=== PATIENT | female | born 1990 | race African-American/Black ===

== ENCOUNTER 2017-12-16 04:40 | Emergency (ER) | payer MEDICAID ==
[~2017-12-16] VITALS: Ht 167.6 cm; Wt 97.7 kg
[~2017-12-16 04:40] MED LIST: ATIVAN 0.50.5 MG/TAB PO; DEPO-PROVER150 MG/M1 IM; DEPO-PROVER400 MG/ML IM; IBU600 MG PO; LASIX 20MG TABL20 MG PO; MACROBID 1100 MG/CAP PO; METRONIDAZOLE500 MG PO; NO HOME MEDICATIONS; NORCO 325 MG-51 TAB PO; PEPCID 20MG TAB20 MG PO; PERCOCET 325 MG1 TA2 PO; PHENERGAN 25 TA25 MG PO; PRENATAL PLUS1 TA2 PO; PYRIDIUM200 M1 PO; TYLENOL 325MG325 MG PO; ZITHROMAX 250M250 MG PO
[2017-12-16 04:46] VITALS: BP 131/89; TEMP 97
[2017-12-16 05:40] VITALS: PULSE 85
== END 2017-12-16 05:49 | disposition home or self-care (01) ==
LOC: COL.ER 04:40
DX: Z11.3 Encounter for screening for infections with a predominantly sexual mode of transmission (principal)
CPT/HCPCS: J0696

== ENCOUNTER 2018-01-03 13:00 | Emergency (ER) | payer OTHER ==
[~2018-01-03] VITALS: Ht 167.6 cm; Wt 78.2 kg
[2018-01-03 13:10] VITALS: BP 101/64; TEMP 98.2
[2018-01-03 14:06] LABS: BASO % 0.8 % (0.0-2.0); EOS # 0.1 (0.0-0.7); EOS % 1.9 % (0-4.0); GRAN % 37.6 % (42.2-75.2); HEMATOCRIT 37.2 % (37.0-47.0); LYMPH # 1.3 (1.2-3.4); LYMPH % 49.4 % (20.0-51.0); MEAN CELL VOLUME 94 fl (80.0-100.0); MEAN CORPUSCULAR HEMOGLOBIN 30 pg (27.0-31.0); MEAN CORPUSCULAR HGB CONC 32 g/dl (33.0-37.0); MEAN PLATELET VOLUME 10.7 fl (7.4-10.4); MONO # 0.3 (0.1-0.6); MONO % 9.9 % (1.7-9.3); PLATELET COUNT 211 K/mm3 (130-400); RED BLOOD COUNT 3.97 M/mm3 (4.10-5.30); REDCELL DISTRIBUTION WIDTH-CV 12.7 % (11.5-14.5)
[2018-01-03 14:12] LABS: HEMOGLOBIN 11.9 g/dl (12.5-16.0)
[2018-01-03 14:15] LABS: ALANINE AMINOTRANSFERASE 28 U/L (9-52); ALBUMIN 3.9 gm/dL (3.5-5.0); ALKALINE PHOSPHATASE 81 U/L (50-136); ANION GAP 10 mmol/L (7-16); AST,SGOT 19 U/L (15-37); BILIRUBIN,TOTAL 0.3 mg/dL (0.0-1.0); BLOOD UREA NITROGEN 10 mg/dL (7-17); CALCIUM 9.4 mg/dL (8.4-10.2); CARBON DIOXIDE 27 mmol/L (22-30); CHLORIDE 101 mmol/L (98-107); CREATININE, serum 0.79 mg/dL (0.52-1.25); GLUCOSE 93 mg/dL (74-106); LIPASE 60 U/L (23-300); SODIUM 138 mmol/L (137-145); TOTAL PROTEIN 7.8 gm/dL (6.4-8.2)
[2018-01-03 14:27] LABS: TROPONIN-I < 0.012 ng/mL (0.000-0.034)
[2018-01-03 15:05] VITALS: PULSE 62
== END 2018-01-03 15:08 | disposition home or self-care (01) ==
LOC: COL.ER 13:00
PROVIDERS: Physician Assistant
DX: R07.89 Other chest pain (principal); F17.210 Nicotine dependence, cigarettes, uncomplicated

== ENCOUNTER 2018-01-24 12:12 | Emergency (ER) | payer OTHER ==
[~2018-01-24] VITALS: Ht 152.4 cm; Wt 90.9 kg
[2018-01-24 12:14] VITALS: BP 104/64; TEMP 98.9
[2018-01-24 13:29] VITALS: PULSE 76
== END 2018-01-24 13:37 | disposition home or self-care (01) ==
LOC: COL.ER 12:12
DX: J02.0 Streptococcal pharyngitis (principal)
CPT/HCPCS: J0561

== ENCOUNTER 2018-04-10 23:17 | Emergency (ER) | payer SELFPAY ==
[~2018-04-10] VITALS: Ht 167.6 cm; Wt 86.8 kg
[2018-04-10 23:22] VITALS: BP 123/73; PULSE 87; TEMP 98.4
[2018-04-10] MEDS ORDERED: AMOXICILLIN 8751 TAB PO (23:58)
== END 2018-04-11 00:22 | disposition home or self-care (01) ==
LOC: COL.ER 23:17
DX: K08.89 Other specified disorders of teeth and supporting structures (principal)

== ENCOUNTER 2018-10-22 10:43 | Emergency (ER) | payer SELFPAY ==
[~2018-10-22] VITALS: Ht 167.6 cm; Wt 82.7 kg
[~2018-10-22 10:43] MED LIST changes: +AMOXICILLIN 8751 TAB PO
[2018-10-22 10:49] VITALS: BP 127/77; PULSE 76; TEMP 99.1
[2018-10-22] MEDS ORDERED: ALEVE 220MG220 MG PO (10:55)
[2018-10-22] MEDS ORDERED: AMOXICILLIN 50500 MG PO (11:13)
[2018-10-22] MEDS ORDERED: NORCO 325 MG-51 TAB PO (11:13)
== END 2018-10-22 11:38 | disposition home or self-care (01) ==
LOC: COL.ER 10:43
DX: K02.9 Dental caries, unspecified (principal)

== ENCOUNTER 2019-03-19 13:28 | Emergency (ER) | payer MEDICAID ==
[~2019-03-19] VITALS: Ht 167.6 cm; Wt 90.0 kg
[~2019-03-19 13:28] MED LIST changes: +ALEVE 220MG220 MG PO; +AMOXICILLIN 50500 MG PO
[2019-03-19 13:36] VITALS: TEMP 99.1
[2019-03-19 14:19] LABS: COLLECTION METHOD CLEAN CATCH
[2019-03-19 14:22] LABS: BASO % 0.7 % (0.0-2.0); EOS # 0.1 (0.0-0.7); EOS % 2.1 % (0-4.0); GRAN # 1.3 (1.4-6.5); HEMATOCRIT 37.7 % (37.0-47.0); HEMOGLOBIN 11.9 g/dl (12.5-16.0); LYMPH # 1.3 (1.2-3.4); LYMPH % 43.8 % (20.0-51.0); MEAN CELL VOLUME 93 fl (80.0-100.0); MEAN CORPUSCULAR HEMOGLOBIN 30 pg (27.0-31.0); MEAN CORPUSCULAR HGB CONC 32 g/dl (33.0-37.0); MEAN PLATELET VOLUME 10.8 fl (7.4-10.4); MONO # 0.3 (0.1-0.6); MONO % 9.4 % (1.7-9.3); PLATELET COUNT 216 K/mm3 (130-400); RED BLOOD COUNT 4.04 M/mm3 (4.10-5.30); REDCELL DISTRIBUTION WIDTH-CV 13.1 % (11.5-14.5)
[2019-03-19 14:26] LABS: MUCOUS Present /lpf; PH 5 (5-8); URINE APPEARANCE Hazy; URINE BACTERIA None Seen /hpf; URINE BILIRUBIN Negative (NEGATIVE); URINE BLOOD 1+ (NEGATIVE); URINE COLOR Yellow; URINE GLUCOSE Negative (NEGATIVE); URINE KETONE Negative (NEGATIVE); URINE LEUKOCYTE ESTERASE Negative (NEGATIVE); URINE NITRATE Negative (NEGATIVE); URINE PROTEIN(semi-quant) Negative (NEGATIVE); URINE UROBILINOGEN Negative (NEGATIVE)
[2019-03-19 14:36] LABS: ALANINE AMINOTRANSFERASE 13 U/L (9-52); ALBUMIN 4.1 gm/dL (3.5-5.0); ALKALINE PHOSPHATASE 74 U/L (50-136); ANION GAP 8 mmol/L (7-16); AST,SGOT 21 U/L (15-37); BILIRUBIN,TOTAL 0.4 mg/dL (0.0-1.0); BLOOD UREA NITROGEN 9 mg/dL (7-17); CALCIUM 9.2 mg/dL (8.4-10.2); CARBON DIOXIDE 27 mmol/L (22-30); CHLORIDE 105 mmol/L (98-107); CREATININE, serum 0.88 (0.52-1.25); GLUCOSE 103 mg/dL (74-106); LIPASE 61 U/L (23-300); POTASSIUM 4.5 mmol/L (3.4-5.0); SODIUM 140 mmol/L (137-145); TOTAL PROTEIN 8.1 gm/dL (6.4-8.2)
[2019-03-19 14:46] LABS: C-REACTIVE PROTEIN < 0.5 mg/dL (0.0-0.9)
[2019-03-19 17:13] VITALS: BP 104/68; PULSE 70
== END 2019-03-19 17:15 | disposition home or self-care (01) ==
LOC: COL.ER 13:28
PROVIDERS: Emergency Medicine
DX: D25.9 Leiomyoma of uterus, unspecified (principal)
CPT/HCPCS: J1170; J7030

== ENCOUNTER 2019-10-11 13:44 | Emergency (ER) | payer MEDICAID ==
[~2019-10-11] VITALS: Ht 167.6 cm; Wt 91.8 kg
[2019-10-11 13:59] VITALS: BP 102/61; TEMP 97.7
[2019-10-11 14:32] LABS: COLLECTION METHOD CLEAN CATCH
[2019-10-11 14:41] LABS: MUCOUS Present /lpf; PH 7 (5-8); SQUAMOUS EPITHELIAL 20-50 /hpf; URINE APPEARANCE Cloudy; URINE BACTERIA Rare /hpf; URINE BILIRUBIN Negative (NEGATIVE); URINE BLOOD Negative (NEGATIVE); URINE COLOR Yellow; URINE GLUCOSE Negative (NEGATIVE); URINE KETONE Negative (NEGATIVE); URINE LEUKOCYTE ESTERASE 1+ (NEGATIVE); URINE NITRATE Negative (NEGATIVE); URINE PROTEIN(semi-quant) Negative (NEGATIVE)
[2019-10-11 14:51] LABS: BASO % 0.3 % (0.0-2.0); EOS # 0.1 (0.0-0.7); EOS % 1.6 % (0-4.0); GRAN # 2.1 (1.4-6.5); GRAN % 56.3 % (42.2-75.2); LYMPH # 1.1 (1.2-3.4); LYMPH % 29.4 % (20.0-51.0); MEAN CELL VOLUME 95 fl (80.0-100.0); MEAN CORPUSCULAR HEMOGLOBIN 30 pg (27.0-31.0); MEAN CORPUSCULAR HGB CONC 32 g/dl (33.0-37.0); MEAN PLATELET VOLUME 10.7 fl (7.4-10.4); MONO # 0.4 (0.1-0.6); MONO % 12.1 % (1.7-9.3); PLATELET COUNT 196 K/mm3 (130-400); RED BLOOD COUNT 3.62 M/mm3 (4.10-5.30); REDCELL DISTRIBUTION WIDTH-CV 12.6 % (11.5-14.5)
[2019-10-11 14:53] LABS: HEMATOCRIT 34.2 % (37.0-47.0)
[2019-10-11 15:07] LABS: ALANINE AMINOTRANSFERASE 11 U/L (9-52); ALBUMIN 3.8 gm/dL (3.5-5.0); ALKALINE PHOSPHATASE 55 U/L (50-136); ANION GAP 6 mmol/L (7-16); AST,SGOT 15 U/L (15-37); BILIRUBIN,TOTAL < 0.1 mg/dL (0.0-1.0); BLOOD UREA NITROGEN 8 mg/dL (7-17); C-REACTIVE PROTEIN < 0.5 mg/dL (0.0-0.9); CALCIUM 9.1 mg/dL (8.4-10.2); CARBON DIOXIDE 26 mmol/L (22-30); CHLORIDE 106 mmol/L (98-107); CREATININE, serum 0.71 (0.52-1.25); GLUCOSE 92 mg/dL (74-106); POTASSIUM 4.3 mmol/L (3.4-5.0); SODIUM 137 mmol/L (137-145)
[2019-10-11 15:48] VITALS: PULSE 81
== END 2019-10-11 15:48 | disposition home or self-care (01) ==
LOC: COL.ER 13:44
PROVIDERS: Nurse Practitioner
DX: O99.350 Diseases of the nervous system complicating pregnancy, unspecified trimester (principal); R51 Headache; Z3A.00 Weeks of gestation of pregnancy not specified

== ENCOUNTER 2020-03-02 11:21 | Emergency (ER) | payer MEDICAID ==
[~2020-03-02] VITALS: Ht 167.6 cm; Wt 100.0 kg
--- NOTE | 2020-03-02 11:00 | NUR ---
Baseline 120s with moderate variability, accelerations and no decelerations. Pt denies LOF, regular ctx, vaginal bleeding and reports GFM.
[2020-03-02 12:05] LABS: BASO % 0.2 % (0.0-2.0); EOS % 0.6 % (0-4.0); GRAN # 3.3 (1.4-6.5); GRAN % 63.2 % (42.2-75.2); HEMOGLOBIN 11.4 g/dl (12.5-16.0); LYMPH # 1.3 (1.2-3.4); LYMPH % 24.6 % (20.0-51.0); MEAN CELL VOLUME 96 fl (80.0-100.0); MEAN CORPUSCULAR HEMOGLOBIN 32 pg (27.0-31.0); MEAN CORPUSCULAR HGB CONC 33 g/dl (33.0-37.0); MEAN PLATELET VOLUME 11.7 fl (7.4-10.4); MONO # 0.5 (0.1-0.6); MONO % 10.1 % (1.7-9.3); PLATELET COUNT 155 K/mm3 (130-400); RED BLOOD COUNT 3.62 M/mm3 (4.10-5.30); REDCELL DISTRIBUTION WIDTH-CV 13.2 % (11.5-14.5)
[2020-03-02 12:06] LABS: HEMATOCRIT 34.6 % (37.0-47.0)
[2020-03-02 12:19] LABS: ALBUMIN 3.7 gm/dL (3.5-5.0); BILIRUBIN,TOTAL 0.4 mg/dL (0.0-1.0); CALCIUM 9.1 mg/dL (8.4-10.2); CREATININE, serum 0.68 (0.52-1.25); POTASSIUM 3.9 mmol/L (3.4-5.0); TOTAL PROTEIN 7.6 gm/dL (6.4-8.2)
[2020-03-02 13:30] LABS: COLLECTION METHOD CLEAN CATCH
[2020-03-02 13:38] LABS: MUCOUS Present /lpf; PH 7 (5-8); SQUAMOUS EPITHELIAL 0-2 /hpf; URINE APPEARANCE Clear; URINE BACTERIA None Seen /hpf; URINE BILIRUBIN Negative (NEGATIVE); URINE BLOOD Negative (NEGATIVE); URINE COLOR Yellow; URINE GLUCOSE Negative (NEGATIVE); URINE KETONE Negative (NEGATIVE); URINE LEUKOCYTE ESTERASE Negative (NEGATIVE); URINE NITRATE Negative (NEGATIVE); URINE PROTEIN(semi-quant) Negative (NEGATIVE); URINE RBC 0-2 /hpf; URINE UROBILINOGEN Negative (NEGATIVE)
[2020-03-02 14:05] VITALS: BP 112/74; PULSE 76; TEMP 97.5
== END 2020-03-02 14:06 | disposition home or self-care (01) ==
LOC: COL.ER 11:21
PROVIDERS: Emergency Medicine
DX: R10.12 Left upper quadrant pain (principal); R11.2 Nausea with vomiting, unspecified
CPT/HCPCS: J2405; J3010; J7030

== ENCOUNTER 2020-04-20 11:21 | Emergency (ER) | payer MEDICAID ==
[~2020-04-20] VITALS: Ht 167.6 cm; Wt 100.0 kg
[2020-04-20 11:22] VITALS: TEMP 98.3
[2020-04-20 12:28] LABS: HEMOGLOBIN 10.2 g/dl (12.5-16.0); MEAN CELL VOLUME 95 fl (80.0-100.0); MEAN CORPUSCULAR HEMOGLOBIN 30 pg (27.0-31.0); MEAN CORPUSCULAR HGB CONC 32 g/dl (33.0-37.0); MEAN PLATELET VOLUME 12.2 fl (7.4-10.4); PLATELET COUNT 125 K/mm3 (130-400); RED BLOOD COUNT 3.35 M/mm3 (4.10-5.30); REDCELL DISTRIBUTION WIDTH-CV 13.2 % (11.5-14.5)
[2020-04-20 12:31] LABS: HEMATOCRIT 31.7 % (37.0-47.0)
--- NOTE | 2020-04-20 12:35 | NUR ---
RN to ER for FHR evaluation on patient. Patient to ER via EMS. Patient denies any concerns. Reports good movement, denies vaginal bleeding, leaking of fluid, or contrations. , 35.1wks per patient. FHR 120s, minimal variability from 3036-2703, then moderate variability from 7921-0462 with accelerations, no decelerations noted. Audible movement.
[2020-04-20 12:43] LABS: ALBUMIN 3.4 gm/dL (3.5-5.0); BILIRUBIN,TOTAL 0.2 mg/dL (0.0-1.0); CALCIUM 8.7 mg/dL (8.4-10.2); CREATININE, serum 0.63 (0.52-1.25); POTASSIUM 3.9 mmol/L (3.4-5.0)
[2020-04-20 12:55] LABS: COLLECTION METHOD CLEAN CATCH
[2020-04-20 12:56] LABS: BAND 1 % (0-10); C-REACTIVE PROTEIN 0.5 mg/dL (0.0-0.9); EOSINOPHIL 1 % (0-4); LYMPHOCYTE 8 % (20.0-51.0); METAMYELOCYTE 4 % (0-0); NEUTROPHILS 81 % (42.0-75.2)
[2020-04-20 12:58] LABS: PLATELET ESTIMATE DECREASED (NORMAL)
[2020-04-20 13:01] LABS: MUCOUS Present /lpf; PH 8 (5-8); URINE APPEARANCE Hazy; URINE BACTERIA Rare /hpf; URINE BILIRUBIN Negative (NEGATIVE); URINE BLOOD Negative (NEGATIVE); URINE COLOR Yellow; URINE GLUCOSE Negative (NEGATIVE); URINE KETONE Negative (NEGATIVE); URINE LEUKOCYTE ESTERASE Negative (NEGATIVE); URINE NITRATE Negative (NEGATIVE); URINE PROTEIN(semi-quant) Negative (NEGATIVE); URINE RBC 0-2 /hpf; URINE UROBILINOGEN Negative (NEGATIVE)
[2020-04-20 13:17] VITALS: BP 115/78; PULSE 74
== END 2020-04-20 13:18 | disposition home or self-care (01) ==
LOC: COL.ER 11:21
PROVIDERS: Family Medicine
DX: E86.0 Dehydration (principal)

== ENCOUNTER 2020-05-26 07:53 | Inpatient (IN) | payer MEDICAID ==
[2020-05-26] VITALS (25 sets, daily range): BP systolic 97–147; BP diastolic 54–77; PULSE 49–102; TEMP 97.8–98.8
[~2020-05-26] VITALS: Ht 165.1 cm; Wt 109.1 kg
--- NOTE | 2020-05-26 10:50 | NUR ---
PT HERE FOR INDUCTION OF LABOR. REPORTS SHE LOST HER MUCOUS PLUG ABOUT 6AM THIS MORNING. HAS BEEN HAVING SLIGHT PAIN ALL NIGHT. FHT'S FOUND IN THE 120'S AND INITIALLY WITH MINIMAL VARIABILITY, AFTER 20MIN ON MONITOR FHT'S WITH MODERATE VARIABILITY AND ACCELS. PT HAVING CONTRACTIONS IRREGULARLY EVERY 2-7 MINUTES AND REPORTS SOME ARE STRONGER THAN OTHERS. IV STARTED IN LEFT HAND WITH LR INFUSING WITHOUT DIFFICULTY. PEN G 5,000,000U STARTED AT 1032 PER GBS PROTOCOL. ASSESSMENT COMPLETED. PLAN OF CARE REVIEWED AND ORIENTED TO ROOM.
--- NOTE | 2020-05-26 11:15 | NUR ---
EMILY /2, DR BELLA CALLED HERE AT 1112 FOR UPDATE. DISCUSSED THE 40 SECOND VARIABLE AND ASKED IF HE WANTS PITOCIN STARTED NOW OR WAIT AND HE WANTS IT STARTED NOW AND HE WILL BE OVER IN ABOUT AN HOUR TO BREAK WATER. PITOCIN STARTED AT 1115 AT 2MU
[2020-05-26 11:28] LABS: BASO % 0.3 % (0.0-2.0); EOS % 0.5 % (0-4.0); GRAN # 3.7 (1.4-6.5); GRAN % 64.4 % (42.2-75.2); HEMOGLOBIN 10.8 g/dl (12.5-16.0); LYMPH # 1.3 (1.2-3.4); LYMPH % 22.3 % (20.0-51.0); MEAN CELL VOLUME 93 fl (80.0-100.0); MEAN CORPUSCULAR HEMOGLOBIN 30 pg (27.0-31.0); MEAN CORPUSCULAR HGB CONC 32 g/dl (33.0-37.0); MEAN PLATELET VOLUME 12.8 fl (7.4-10.4); MONO # 0.7 (0.1-0.6); MONO % 11.3 % (1.7-9.3); PLATELET COUNT 126 K/mm3 (130-400); RED BLOOD COUNT 3.63 M/mm3 (4.10-5.30); REDCELL DISTRIBUTION WIDTH-CV 13.9 % (11.5-14.5)
[2020-05-26 11:31] LABS: HEMATOCRIT 33.6 % (37.0-47.0)
--- NOTE | 2020-05-26 12:15 | NUR ---
DR BELLA HERE AT 1210 REMAINS "A GOOD 3CM." AROM AT 1212 WITH SMALL AMOUNT OF CLEAR, ODORLESS FLUID.
--- NOTE | 2020-05-26 12:45 | NUR ---
PT WANTING EPIDURAL. CALLED LIBRA JACKSON CRNA, AT 1236 FOR PLACEMENT. LR FLUID BOLUS STARTED. ENCOURAGED BREATHING TECHNIQUES
--- NOTE | 2020-05-26 13:00 | NUR ---
PT FEELING MORE PRESSURE, SVE 5-6/80/-2
--- NOTE | 2020-05-26 13:15 | NUR ---
LIBRA JACKSON CRNA, IN AT 1308 FOR EPIDURAL PLACEMENT. PT SITTING UP FOR EPIDURAL.
--- NOTE | 2020-05-26 13:28 | NUR ---
1320 FOB AT ER ADMISSIONS ASKING TO COME UP TO FLOOR. ER FACULTY PHYSICIAN STATES HE SAYS THE SUPPORT PERSON HERE SHOULD NOT BE HERE AND HE SHOULD BE HERE. THIS RN CLARIFIED WITH LABOR RN, ZAY IF FOB WAS SUPPOSED TO BE COMING UP. SHE STATED NO, THAT PATIENT SUPPORT PERSON ALREADY HAS A ID BAND MATCHING PATIENTS. THIS RN NOTIFIED ER ADMISSIONS THAT FOB CAN NOT COME TO UNIT AT THIS TIME.
--- NOTE | 2020-05-26 13:30 | NUR ---
PT SITTING FOR EPIDURAL. TEST DOSE AT 1318 WITH NO ABNORMAL SYMPTOMS REPORTED OR OBSERVED. PT LYING BACK DOWN WEDGE LEFT AFTER EPIDURAL PLACEMENT.
--- NOTE | 2020-05-26 13:45 | NUR ---
FHT'S WITH DECELS LASTING 70-80 SECONDS WITH CONTRACTIONS, BOLUS STARTED REPOSITIONED WEDGE RIGHT. 1338-DR BELLA CALLED HERE AND HE IS WATCHING THE MONITOR STRIP AT THE OFFICE AND STATES HE WILL CONTINUE TO WATCH 1339-DROP IN FHT'S THE THE 60-70'S, REPOSITIONED WEDGE LEFT,O2 ON 10L PER SIMPLE MASK, PITOCIN OFF AT 1342, FSE APPLIED BY ODIN PHELAN, AND SVE /-1. 1343-PT TO KNEE CHEST POSITION 1344-CALLED DR BELLA WITH UPDATE AND HE IS WATCHING THE MONITOR STRIP
--- NOTE | 2020-05-26 14:00 | NUR ---
PT REMAINS IN KNEE CHEST. WILLS CATHETER PLACED AT 1347 WITH CLEAR YELLOW URINE RETURNED. FHT'S BACK UP TO 120'S. CALLED DR BELLA AT 1349 TO TELL HIM FHT'S BACK UP AND WILL CALL HIM BACK IF HE NEEDS TO COME TO THE HOSPITAL.
--- NOTE | 2020-05-26 14:15 | NUR ---
FHT'S DOWN TO 50-60'S WITH PROLONGED OVER 3 MINUTE CONTRACTION. SVE 9/100. PT STILL IN KNEE CHEST POSITION. PITOCIN REMAINS OFF AND O2 ON.
--- NOTE | 2020-05-26 14:30 | NUR ---
PEN G DOSE #2 HUNG AND LR #3. DR BELLA CALLED AT 1424 TO SAY HE WAS STILL WATCHING THE MONITOR AT THE OFFICE AND SAW THE COUPLE DECELS. INFORMED HIM THIS RN IS PLANNING TO REPOSITION PT ON HER BACK AND RECHECK. REPOSITIONED AT 1428 WITH DROP IN FHT'S TO THE 50-70 RANGE OVER 90 SECONDS. SVE 10/100/+2. FSE FELL OFF, EXTERNAL MONITOR APPLIED.
--- NOTE | 2020-05-26 14:43 | NUR ---
1431-CALLED DR BELLA TO COME FOR DELIVERY. FHT'S AUDIBLE IN THE 70-110 RANGE WITH DROPS TO THE 70'S DURING CONTRACTIONS. PT PREPPED AND POSITIONED FOR PUSHING DR BELLA HERE AT 1438. OF MALE INFANT AT 1443. INFANT WITH VIGOROUS CRY TO MOM'S ABDOMEN.
--- NOTE | 2020-05-26 14:53 | NUR ---
DR BELLA DONE REPAIRING RIGHT LABIAL LACERATION. PERICARE PERFORMED, ICE PACK IN PLACE. FUNDUS FIRM WITH SMALL AMOUNT OF BLEEDING. PITOCIN STARTED AT 333ML/HR AFTER DELIVERY OF PLACENTA.
--- NOTE | 2020-05-26 16:20 | NUR ---
PT RESTING IN BED. FUNDUS FIRM WITH MINIMAL BLEEDING OBSERVED. IV TO INT AT THIS TIME. EATING A SNACK OF A SANDWICH. CAN MOVE RIGHT LEG BUT NOT LEFT.
--- NOTE | 2020-05-26 16:50 | NUR ---
STILL UNABLE TO MOVE LEFT LEG. REPORTS SOME ABDOMINAL PAIN AND WANTING IBUPROFEN BUT NEEDS IT TO BE CRUSHED.
--- NOTE | 2020-05-26 17:05 | NUR ---
CRUSHED AN IBUPROFEN AND GAVE TO PT AND SHE VOMITED A VERY LARGE AMOUNT WITHIN 3 MINUTES OF TAKING THE IBUPROFEN. REPORTS HER STOMACH ACTUALLY FEELS BETTER NOW. SPRITE GIVEN.
--- NOTE | 2020-05-26 17:50 | NUR ---
ASSISTED PATIENT TO BATHROOM. LEFT LEG STILL NUMB. WAS ABLE TO PIVOT INTO WHEELCHAIR. UNABLE TO VOID. PERICARE PERFORMED. NEW PACO PAD AND MESH UNDERWEAR ON. NEW GOWN ON. TRANSFERRED TO ROOM. ORIENTED TO ROOM.
[2020-05-27 05:00] VITALS: BP 110/64; PULSE 70; TEMP 98.8
[2020-05-27 07:30] VITALS: BP 102/61; PULSE 66; TEMP 97.6
--- NOTE | 2020-05-27 08:06 | NUR ---
REPORT RECEIVED FROM DEAN PRATER RN. CARE TAKEN OVER BY THIS RN.
--- NOTE | 2020-05-27 09:04 | NUR ---
Initial visit; Mom thanked for offering congratulations and God Blessings for the of her son. Extension Associate thanked mom for choosing [facility].
[2020-05-27 15:48] VITALS: BP 104/69; PULSE 68; TEMP 98.5
[2020-05-27 20:00] VITALS: BP 112/73; PULSE 75; TEMP 98.2
[2020-05-28 02:20] VITALS: BP 106/72; PULSE 84; TEMP 97.7
[2020-05-28 07:49] VITALS: BP 111/68; PULSE 69; TEMP 97.8
[2020-05-28] MEDS ORDERED: IBU600 MG PO (08:28)
--- NOTE | 2020-05-28 08:35 | NUR ---
REPORT RECEIVED FROM OFF GOING RNNICK. CARE TAKEN OVER BY THIS RN.
== END 2020-05-28 13:50 | disposition home or self-care (01) | DRG 807 ==
LOC: OB 07:53 → LDR 10:05 → OB 10:05
PROVIDERS: ADMIT Obstetrics & Gynecology
PROC: 10E0XZZ Delivery of Products of Conception, External Approach (ICD-10-PCS; principal; 2020-05-26)
PROC: 0HQ9XZZ Repair Perineum Skin, External Approach (ICD-10-PCS; 2020-05-26)
DX: O48.0 Post-term pregnancy (principal); Z37.0 Single live birth; O99.02 Anemia complicating childbirth; O70.0 First degree perineal laceration during delivery; Z3A.40 40 weeks gestation of pregnancy
CPT/HCPCS: J2540; J2590; J7120

== ENCOUNTER 2021-09-22 23:54 | Emergency (ER) | payer MEDICAID ==
[~2021-09-22] VITALS: Ht 167.6 cm; Wt 94.5 kg
[2021-09-22 23:59] VITALS: TEMP 98.4
[2021-09-23 00:57] LABS: BASO % 0.7 % (0.0-2.0); EOS # 0.1 K/mm3 (0.0-0.7); EOS % 2.4 % (0.0-4.0); GRAN # 3.1 K/mm3 (1.4-6.5); GRAN % 54.5 % (42.2-75.2); HEMATOCRIT 37.2 % (37.0-47.0); HEMOGLOBIN 12.1 g/dl (12.5-16.0); LYMPH % 34.4 % (20.0-51.0); MEAN CELL VOLUME 91 fl (80.0-100.0); MEAN CORPUSCULAR HEMOGLOBIN 29 pg (27-31); MEAN CORPUSCULAR HGB CONC 33 g/dl (33.0-37.0); MEAN PLATELET VOLUME 10.9 fl (7.4-10.4); MONO # 0.4 K/mm3 (0.1-0.6); MONO % 7.5 % (1.7-9.3); PLATELET COUNT 244 K/mm3 (130-400); RED BLOOD COUNT 4.11 M/mm3 (4.10-5.30); REDCELL DISTRIBUTION WIDTH-CV 13.2 % (11.5-14.5)
[2021-09-23 01:10] LABS: ALANINE AMINOTRANSFERASE 17 U/L (0-55); ALBUMIN 3.4 gm/dL (3.5-5.0); ANION GAP 7 mmol/L (7-16); AST,SGOT 17 U/L (5-34); BILIRUBIN,TOTAL 0.2 mg/dL (0.2-1.2); BLOOD UREA NITROGEN 12 mg/dL (7-19); CALCIUM 8.8 mg/dL (8.4-10.2); CARBON DIOXIDE 23 mmol/L (22-29); CHLORIDE 109 mmol/L (98-107); CREATININE, serum 1.03 mg/dL (0.57-1.11); GLUCOSE 106 mg/dL (70-99); POTASSIUM 4.1 mmol/L (3.5-4.5); SODIUM 139 mmol/L (136-145); TOTAL PROTEIN 6.8 gm/dL (6.2-8.1)
[2021-09-23 01:11] LABS: ALKALINE PHOSPHATASE 72 U/L (40-150)
[2021-09-23 01:18] LABS: TROPONIN-I < 0.010 ng/mL (0.00-0.033)
[2021-09-23 02:44] VITALS: BP 101/69; PULSE 75
== END 2021-09-23 02:52 | disposition home or self-care (01) ==
LOC: COL.ER 23:54
PROVIDERS: Physician Assistant
DX: R55 Syncope and collapse (principal); R07.89 Other chest pain
CPT/HCPCS: J7030

== ENCOUNTER 2021-12-21 12:45 | Emergency (ER) | payer MEDICAID ==
[~2021-12-21] VITALS: Ht 167.6 cm; Wt 95.0 kg
[2021-12-21] MEDS ORDERED: NORCO 325 MG-51 TAB PO (14:29)
[2021-12-21] MEDS ORDERED: AMOXICILLIN 8751 TAB PO (14:29)
[2021-12-21 14:42] VITALS: BP 143/105; PULSE 92; TEMP 98.3
== END 2021-12-21 14:42 | disposition home or self-care (01) ==
LOC: COL.ER 12:45
DX: R05.9 Cough, unspecified (principal)